=== PATIENT | male | born 1945 | race Caucasian/White ===

== ENCOUNTER 2018-11-23 07:55 | Day surgery (SDC) | payer MEDICARE, BC ==
[2018-11-23] MEDS ORDERED: LIDOCAINE 2% MDV (20MG/ML) 20ML VIAL IV ONE (07:56)
[2018-11-23] MEDS ORDERED: PROPOFOL 10 MG/ML VIAL IV ONE (07:56)
--- NOTE | 2018-11-24 17:20 | Operative Note ---
DATE: 11/23/2018 OPERATION: COLONOSCOPY. PREOPERATIVE DIAGNOSIS: Change in bowel habits. POSTOPERATIVE DIAGNOSIS: Moderately severe sigmoid diverticulosis. PREPARATION QUALITY: Good to excellent. ESTIMATED BLOOD LOSS: None. COMPLICATIONS: None. PROCEDURE: After informed consent was obtained from the patient, he was placed in the left lateral decubitus position in the endoscopy suite, sedated and monitored by the department of anesthesia. Digital rectal exam was unremarkable. A well-lubricated [id number] colonoscope was inserted into the rectum and advanced to the cecum. Preparation quality was good. The cecum, cecal bulb, ileocecal valve, appendiceal orifice, ascending colon, transverse colon, descending colon, sigmoid colon, and rectum were free of inflammatory changes, mass lesions, or polyps. There were moderately severe sigmoid diverticular changes. The rectum was unremarkable in forward and in J-turn views. The endoscope was straightened, the rectal ampulla deflated, and the endoscope was removed. RECOMMENDATIONS: I would suggest the patient follow a high-fiber diet and consider the use of a fiber supplement such as Benefiber or Citrucel. If he is still having difficulty with having bowel movements, perhaps the addition of MiraLax would also be helpful. Based on his average risk and negative exam, it does not appear he needs another exam for 10 years, which would put him at 83. That may not be necessary at that time. As always, thank you for allowing me to participate in the healthcare of your patients. RAMIN
== END 2018-11-23 10:35 | disposition home or self-care (01) ==
LOC: HOP 07:55
PROVIDERS: ATTEND Internal Medicine Gastroenterology
DX: K59.00 Constipation, unspecified (principal); K57.30 Diverticulosis of large intestine without perforation or abscess without bleeding

== ENCOUNTER 2019-01-26 09:56 | Emergency (ER) | payer MEDICARE, BC ==
--- NOTE | 2019-01-26 10:16 | Emergency Department Record ---
History of Present Illness - General Chief Complaint: Shortness of breath Stated Complaint: CHAPIS Time Seen by Provider: 01/26/19 10:05 Source: Patient Mode of Arrival: Ambulatory Limitations: No limitations - History of Present Illness Initial Comments: 73 yo male presents with a concern that he is a victim of vaping. He states he read some articles on vaping and his symptoms corresponded to what he read. He spoke with his PCP this morning and states he was directed to the ED for evaluation. He states he has had a cough for several months, possibly 6 months. He has frequent morning sputum. The sputum is non bloody and sometimes slightly green. No chest pain. He states he started using vaping in August. He states he uses one vial a month. He smokes daily marijuana (medical). He has smoked medical marijuana 6 years. No leg edema. No shortness of breath but he feels restricted with taking deep breaths. He denies any history of COPD, as thma or chronic heart or lung conditions. He notes trouble with getting a good night sleeping recently duo nasal congestion and drainage. He is on Flonase, nasal rinses, and antibiotics. MD Complaint: Cough, Shortness of breath -: Week(s) Severity: Moderate Quality: Other Consistency: Intermittent Improves With: Nothing Worsens With: Other (vaping) Known History Of: Other (remote history of cigarettes, current medical marijuna and vaping) Context: Other Associated Symptoms: Cough - Related Data Home Medications Medication Instructions Recorded Confirmed Last Taken Valacyclovir HCl [Valacyclovir] 500 mg PO DAILY PRN 01/26/19 01/26/19 01/19/19 Allergies Allergy/AdvReac Type Severity Reaction Status Date / Time No Known Drug Allergies Allergy Verified 01/26/19 10:08 Review of Systems Constitutional: Denies: Chills, Fever, Malaise, Night sweats, Weakness Eyes: Denies: Eye discharge, Eye pain, Photophobia, Vision change ENT: Reports: Congestion, Ear pain. Denies: Throat pain Respiratory: Reports: Cough, Dyspnea. Denies: Hemoptysis, Stridor, Wheezes Cardiovascular: Denies: Chest pain, Dyspnea on exertion, Palpitations, Syncope Endocrine: Denies: Fatigue, Polydipsia, Polyuria Gastrointestinal: Denies: Abdominal pain, Diarrhea, Nausea, Vomiting Genitourinary: Denies: Dysuria, Frequency, Hematuria Musculoskeletal: Denies: Arthralgia, Back pain, Joint swelling, Myalgia Skin: Denies: Bruising, Change in color, Rash Neurological: Denies: Headache, Numbness, Weakness Psychiatric: Denies: Anxiety Hematological/Lymphatic: Denies: Easy bleeding, Easy bruising Past Medical History - SOCIAL HISTORY Smoking Status: Former smoker - RESPIRATORY Hx Respiratory Disorders: No - CARDIOVASCULAR Hx Cardio Disorders: No - NEURO Hx Neuro Disorders: No - GI Hx GI Disorders: Yes Comment:: diverticulosis, 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 negative: Conjunctival injection, Scleral icterus - ENT ENT exam: Normal exam, Mucous membranes moist, Normal orophraynx, TM's normal bilaterally Ear exam: Normal external inspection Nasal Exam: Normal inspection. negative: Discharge, Dried blood Mouth exam: Normal external inspection Teeth exam: Normal inspection Throat exam: Normal inspection. negative: Tonsillar erythema, Tonsillomegaly, Tonsillar exudate, R peritonsillar mass, L peritonsillar mass - Neck Neck exam: Normal inspection, Full ROM. negative: Lymphadenopathy, Tenderness - Respiratory Respiratory exam: Normal lung sounds bilaterally. negative: Accessory muscle use, Chest wall tenderness, Decreased breath sounds, Prolonged expiratory, Respiratory distress, Rhonchi, Stridor, Wheezes - Cardiovascular Cardiovascular Exam: Regular rate, Normal rhythm, Normal heart sounds Peripheral Pulses: 2+: Radial (R), Radial (L) - GI/Abdominal GI/Abdominal exam: Soft. negative: Tenderness - Rectal Rectal exam: Deferred - exam: Deferred - Extremities Extremities exam: Normal inspection. negative: Pedal edema, Tenderness - Back Back exam: Denies: CVA tenderness (R), CVA tenderness (L) - Neurological Neurological exam: Alert, Oriented X3 - Psychiatric Psychiatric exam: Normal affect, Normal mood - Skin Skin exam: Dry, Intact, Normal color, Warm Course - Reevaluation(s) Reevaluation #1: 01/26/19 10:37 EKG #1: 10:13 Rate: 79 Rhythm: sinus Mcalister: normal Intervals: normal ST segments: mild slow R progression otherwise normal EKG Prior: 01/26/19 11:08 No acute changes in the labs The CXR demonstrates mild hyperinflation otherwise normal No hypoxia No signs of acute medical condition I encourage him to finish his antibiotics and see his doctor for outpatient evaluation of his cough No signs of acute issue with vaping He was encouraged to stop all forms of smoking. Medical Decision Making - Lab Data Result diagrams: 01/26/19 10:20 01/26/19 10:20 Disposition Disposition: Discharge Clinical Impression: Cough Dyspnea Qualifiers: Dyspnea type: unspecified Qualified Code(s): R06.00 - Dyspnea, unspecified Disposition: Home, Self-Care Condition: (1) Good Instructions: Chronic Cough (ED) Additional Instructions: Call your doctor to follow up on your concerns about vaping exposure Stop vaping and other forms of smoking to protect your lungs Your doctor may consider other tests such as pulmonary function tests, high resolution CT scan, or orientation and mobility specialist consultation if needed, ENT consultation, or even a sleep study Forms: Patient Portal Access Time of Disposition: 11:10 Quality - Quality Measures Quality Measures: N/A - Blood Pressure Screening Does Patient Have Any of the Following: No Blood Pressure Classification: Hypertensive Reading Systolic Measurement: 146 Diastolic Measurement: 93 Screening for High Blood Pressure: < Pre-Hypertensive BP, F/U Documented > [G8950] Pre-Hypertensive Follow-up Interventions: Referral to alternative/primary care provider.
[2019-01-26 10:28] LABS: ABSOLUTE NEUTROPHIL COUNT 5.04; BASO % 0.3 % (0-6); EOS % 1.4 % (0-6); GRAN % 72.4 % (47-80); HEMATOCRIT 43.1 % (42.0-52.0); HEMOGLOBIN 15.5 gm/dl (14.0-18.0); LYMPH % 17.7 % (16-45); MEAN CELL VOLUME 87.8 fl (81-97); MEAN CORPUSCULAR HEMOGLOBIN 31.6 pg (27-33); MEAN PLATELET VOLUME 8.8 fl (7.4-10.4); MONO % 8.2 % (0-9); PLATELET COUNT 280 K/uL (130-400); RED BLOOD COUNT 4.91 M/uL (4.40-5.70); RED CELL DISTRIBUTION WIDTH 12.2 % (11.5-14.5)
[2019-01-26 10:39] LABS: BLOOD UREA NITROGEN 19 mg/dL (8-23); CREATININE 0.8 mg/dL (0.7-1.2); EST GLOMERULAR FILTRATION RATE > 60 mL/min
[2019-01-26 10:40] LABS: TOTAL PROTEIN 7.3 g/dL (6.6-8.7)
[2019-01-26 10:42] LABS: GLUCOSE,RANDOM 167 mg/dL (74-109)
[2019-01-26 10:45] LABS: ALB/GLOB RATIO 1.6 (1.1-1.8); ALBUMIN 4.5 g/dL (4.0-5.0); ALKALINE PHOSPHATASE 45 U/L (40-129); ALT/SGPT 16 U/L (<41); AST/SGOT 22 U/L (10.0-50.0)
--- NOTE | 2019-01-29 16:58 | RADIOLOGY REPORT ---
STUDY: Chest 2 views. CLINICAL HISTORY: Cough with sputum for several weeks. TECHNIQUE: Upright PA and lateral views of the chest. COMPARISON: None. FINDINGS: The heart is not enlarged and the pulmonary vasculature is nondilated. The thoracic aorta is mildly tortuous. The lung exam pleural spaces are clear. The lungs are borderline to mildly hyperinflated. No acute osseous abnormality. Old healed fracture deformities of the posterolateral right 6th and 7th ribs. IMPRESSION: No radiographic evidence of acute cardiopulmonary disease. Borderline to mild hyperinflation of the lungs. MTDD
== END 2019-01-26 11:42 | disposition home or self-care (01) ==
LOC: ER 09:56
DX: R05 Cough (principal); R06.00 Dyspnea, unspecified; F17.290 Nicotine dependence, other tobacco product, uncomplicated
CPT/HCPCS: 71046; 80053; 85025; 93005; 93010; 99284

== ENCOUNTER 2019-01-28 10:48 | Emergency (ER) | payer MEDICARE, BC ==
--- NOTE | 2019-01-28 11:13 | Emergency Department Record ---
History of Present Illness - General Chief Complaint: Hypertension Stated Complaint: HIGH BLOOD PRESSURE Time Seen by Provider: 01/28/19 10:53 Source: Patient Mode of Arrival: Ambulatory Limitations: No limitations - History of Present Illness Initial Comments: The patient is here due to deciding to take his BP at [facility] and finding it elevated. He denies any symptoms and specifically denies any RODRIGUEZ, CP, SOB, blurred vision or balance issues. He has no hx of HTN. MD Complaint: Other -: Unknown Associated Symptoms: Denies other symptoms - [place] Coma Scale Eye Response: (4) Open spontaneously Motor Response: (6) Obeys commands Verbal Response: (5) Oriented [place] Total: 15 - Related Data Home Medications Medication Instructions Recorded Confirmed Last Taken Doxycycline Hyclate 100 mg PO BID 01/28/19 01/28/19 01/28/19 Allergies Allergy/AdvReac Type Severity Reaction Status Date / Time No Known Drug Allergies Allergy Verified 01/28/19 11:05 Travel Screening - Travel/Exposure Within Last 30 Days Have you traveled within the last 30 days?: No - Travel/Exposure Within Last Year Have you traveled outside the [place] 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 negative: Tonsillar erythema, Tonsillar exudate - Neck Neck exam: Normal inspection, Full ROM. negative: Tenderness - Respiratory Respiratory exam: Normal lung sounds bilaterally. negative: Respiratory distress - Cardiovascular Cardiovascular Exam: Regular rate, Normal rhythm, Normal heart sounds - GI/Abdominal GI/Abdominal exam: Soft, Normal bowel sounds. negative: Tenderness - Extremities Extremities exam: Normal inspection, Full ROM, Normal capillary refill. negative: Tenderness - Neurological Neurological exam: Alert, Normal gait, Oriented X3. negative: Abnormal gait, Altered, Motor sensory deficit - Psychiatric Psychiatric exam: negative: Anxious Course Vital Signs 01/28/19 10:58 Temperature 98.0 F Pulse Rate 79 Respiratory 16 Rate Blood Pressure 147/85 Pulse Ox 99 - Reevaluation(s) Reevaluation #1: The patient is doing very well at this time. He is to see his family doctor for recheck this week. 01/28/19 11:25 Disposition Disposition: Discharge Clinical Impression: History of hypertension Disposition: Home, Self-Care Condition: (2) Stable Instructions: Hypertension (ED) Additional Instructions: Please continue your regular medicines and please see your doctor this week for recheck. Return to the ER for any worsening symptoms. Forms: Patient Portal Access Time of Disposition: 11:24 Quality - Quality Measures Quality Measures: N/A - Blood Pressure Screening View Details: Yes Does Patient Have Any of the Following: No Blood Pressure Classification: Pre-Hypertensive BP Reading Systolic Measurement: 147 Diastolic Measurement: 85 Screening for High Blood Pressure: < Pre-Hypertensive BP, F/U Documented > [G8950] Pre-Hypertensive Follow-up Interventions: Referral to alternative/primary care provider.
== END 2019-01-28 11:33 | disposition home or self-care (01) ==
LOC: ER 10:48
DX: I10 Essential (primary) hypertension (principal); Z87.891 Personal history of nicotine dependence
CPT/HCPCS: 99282